=== PATIENT | male | born 1980 | race Caucasian/White ===

== ENCOUNTER 2019-05-03 18:02 | Emergency (ER) | payer BC ==
[~2019-05-03] VITALS: Ht 185.4 cm; Wt 86.4 kg
[2019-05-03 18:25] VITALS: TEMP 98.3
[2019-05-03 21:22] VITALS: BP 127/83; PULSE 87
== END 2019-05-03 21:25 | disposition home or self-care (01) ==
LOC: COL.ER 18:02
DX: S59.902A Unspecified injury of left elbow, initial encounter (principal); W01.0XXA Fall on same level from slipping, tripping and stumbling without subsequent striking against object, initial encounter; Y93.22 Activity, ice hockey; Y92.330 Ice skating rink (indoor) (outdoor) as the place of occurrence of the external cause
CPT/HCPCS: J2060; J3010; J7030; Q4050